=== PATIENT | male | born 1955 | race Caucasian/White ===

== ENCOUNTER 2021-10-14 11:26 | Outpatient (CLI) | payer MEDICARE, BC ==
[2021-10-14 13:38] LABS: Hemoglobin 12.2 g/dL (13.5-17.5); Mean Corpuscular HGB CONC 31.9 g/dL (32.0-36.0); Mean Corpuscular Hemoglobin 24.3 pg (27.0-33.0); Mean Corpuscular Volume 76.3 fl (81.2-95.1); Mean Platelet Volume 8.8 fl (7.4-10.4); Platelet Count 189 10x3/uL (150-450); RBC Distribution Width 21.5 % (11.5-14.5); Red Blood Cell (RBC) Count 5.02 10x6/uL (4.32-5.72); White Blood Cell (WBC) Count 9.6 10x3/uL (3.5-10.5)
[2021-10-14 13:47] LABS: Anion Gap 11 mmol/L (10-20); BUN (Urea Nitrogen) 13 mg/dL (8.4-25.7); Calc. Creatinine Clearance 0 mL/min (70-130); Calcium 8.6 mg/dL (7.8-10.44); Carbon Dioxide 27 mmol/L (23-31); Chloride 104 mmol/L (98-107); Glucose 80 mg/dL (80-115); Potassium 3.9 mmol/L (3.5-5.1); Sodium 138 mmol/L (136-145)
[2021-10-14 13:49] LABS: INR-International Normal Ratio 1.1; Prothrombin Time 12.3 sec (9.5-12.1)
[2021-10-15 11:57] LABS: SARS-CoV-2 PCR by NAA Not Detected (NotDetected)
== END 2021-10-14 11:27 | disposition home or self-care (01) ==
LOC: LABBT 11:26
PROVIDERS: ATTEND Internal Medicine Cardiovascular Disease
DX: Z01.812 Encounter for preprocedural laboratory examination (principal); I48.19 Other persistent atrial fibrillation; Z20.822 Contact with and (suspected) exposure to COVID-19
CPT/HCPCS: 80048; 85027; 85610; U0003; U0005

== ENCOUNTER 2021-10-19 07:07 | Day surgery (SDC) | payer MEDICARE, BC ==
[2021-10-15 12:52] VITALS: BMI 37.2
[2021-10-19] MEDS ORDERED: Heparin 25,000 units/D5W 500 ML ONE (09:31)
[2021-10-19] MEDS ORDERED: Heparin 10,000 UNITS/ 10 ML VIAL ONE (09:31)
[2021-10-19] MEDS ORDERED: Fentanyl 100 MCG/2 ML VIAL ONE (11:03)
[2021-10-19] MEDS ORDERED: Ondansetron PF 4 MG/2 ML Vial ONE (11:36)
[2021-10-19] MEDS ORDERED: Dexamethasone 20 MG/5 ML VIAL ONE (11:36)
[2021-10-19] MEDS ORDERED: ePHEDrine 50 MG/ML VIAL ONE (11:36)
[2021-10-19] MEDS ORDERED: PROPOFOL 200 MG/20 ML VIAL ONE (11:36)
[2021-10-19] MEDS ORDERED: Rocuronium Bromide 10 MG/ML (10ML VIAL) ONE (11:36)
[2021-10-19] MEDS ORDERED: Lidocaine 1% PF 5 ML VIAL ONE (11:36)
[2021-10-19] MEDS ORDERED: Phenylephrine 10 MG/ML VIAL ONE (11:36)
[2021-10-19] MEDS ORDERED: HYDROmorphone 2 MG/ML VIAL ONE (13:32)
[2021-10-19] MEDS ORDERED: Protamine Sulfate 50 MG/5 ML VIAL ONE (14:19)
== END 2021-10-19 19:10 | disposition home or self-care (01) ==
LOC: CCL 07:07
PROVIDERS: ATTEND Internal Medicine Cardiovascular Disease
PROC: B246ZZ4 Ultrasonography of Right and Left Heart, Transesophageal (ICD-10-PCS; principal; 2021-10-19)
PROC: B24CZZ4 Ultrasonography of Pericardium, Transesophageal (ICD-10-PCS; 2021-10-19)
PROC: B244ZZ3 Ultrasonography of Right Heart, Intravascular (ICD-10-PCS; 2021-10-19)
PROC: 02583ZZ Destruction of Conduction Mechanism, Percutaneous Approach (ICD-10-PCS; 2021-10-19)
PROC: 02K83ZZ Map Conduction Mechanism, Percutaneous Approach (ICD-10-PCS; 2021-10-19)
DX: I48.11 Longstanding persistent atrial fibrillation (principal); I70.0 Atherosclerosis of aorta; I49.5 Sick sinus syndrome; I11.0 Hypertensive heart disease with heart failure; I50.22 Chronic systolic (congestive) heart failure; E78.5 Hyperlipidemia, unspecified; I25.10 Atherosclerotic heart disease of native coronary artery without angina pectoris; I25.2 Old myocardial infarction; M17.11 Unilateral primary osteoarthritis, right knee; E66.9 Obesity, unspecified; Z68.37 Body mass index [BMI] 37.0-37.9, adult; Z87.891 Personal history of nicotine dependence; Z79.01 Long term (current) use of anticoagulants; Z79.899 Other long term (current) drug therapy; Z88.3 Allergy status to other anti-infective agents; Z95.0 Presence of cardiac pacemaker
CPT/HCPCS: 85347; 93005; 93312; 93613; 93656; 93657; 93662; C1732; C1759; C1776; C2630; J1170; J1644; J2720; J3010

== ENCOUNTER 2022-03-28 09:29 | Outpatient (CLI) | payer MEDICARE, BC ==
[2022-03-28 10:52] LABS: Hemoglobin 11.1 g/dL (13.5-17.5); Mean Corpuscular Volume 84.6 fl (81.2-95.1); Mean Platelet Volume 8.4 fl (7.4-10.4); Platelet Count 204 10x3/uL (150-450); RBC Distribution Width 23.2 % (11.5-14.5); Red Blood Cell (RBC) Count 3.97 10x6/uL (4.32-5.72); White Blood Cell (WBC) Count 5.8 10x3/uL (3.5-10.5)
[2022-03-28 10:56] LABS: Anion Gap 12 mmol/L (10-20); BUN (Urea Nitrogen) 14 mg/dL (8.4-25.7); Calc. Creatinine Clearance 0 mL/min (70-130); Calcium 8.7 mg/dL (7.8-10.44); Carbon Dioxide 25 mmol/L (23-31); Chloride 105 mmol/L (98-107); Glucose 96 mg/dL (80-115); Sodium 138 mmol/L (136-145)
[2022-03-28 11:02] LABS: INR-International Normal Ratio 1.3
[2022-03-28 11:24] LABS: ALT (SGPT) 78 U/L (8-55); AST (SGOT) 135 U/L (5-34); Albumin 2.9 g/dL (3.4-4.8); Alkaline Phosphatase 204 U/L (40-110); Bilirubin, Direct 1.5 mg/dL (0.1-0.3); Bilirubin, Total 2.4 mg/dL (0.2-1.2); Protein, Total 7.1 g/dL (5.8-8.1)
[2022-03-28 20:29] LABS: SARS-CoV-2 PCR by NAA Not Detected (NotDetected)
== END 2022-03-28 09:30 | disposition home or self-care (01) ==
LOC: LABBT 09:29
PROVIDERS: ATTEND Internal Medicine Cardiovascular Disease
DX: Z01.812 Encounter for preprocedural laboratory examination (principal); I48.11 Longstanding persistent atrial fibrillation; Z20.822 Contact with and (suspected) exposure to COVID-19
CPT/HCPCS: 80048; 80076; 85027; 85610; U0003; U0005

== ENCOUNTER 2023-10-02 11:29 | Outpatient (CLI) | payer MEDICARE, BC | END 2023-10-02 11:30 | disposition home or self-care (01) | LOC: SCSRAD 11:29 | PROVIDERS: ATTEND Family Medicine | DX: M25.551 Pain in right hip (principal); M89.9 Disorder of bone, unspecified ==

== ENCOUNTER 2024-01-18 11:04 | Outpatient (CLI) | payer MEDICARE, BC ==
[2024-01-18 12:40] LABS: #Basophils 0.1 10x3/uL (0.0-0.2); #Eosinphils 0.8 10x3/uL (0.0-0.5); #Monocytes 0.9 10x3/uL (0.0-1.1); #Neutrophils 4.7 10x3/uL (1.5-8.4); %Basophils 1.3 % (0.0-2.0); %Eosinophils 10.4 % (0.0-6.0); %Lymphocytes 15.4 % (18.0-47.0); %Monocytes 11.3 % (0.0-10.0); %Neutrophils 61.2 % (40.0-75.0); Mean Corpuscular HGB CONC 35.9 g/dL (32.0-36.0); Mean Corpuscular Hemoglobin 32.7 pg (27.0-33.0); Mean Corpuscular Volume 91.1 fl (81.2-95.1); Mean Platelet Volume 8.4 fl (7.4-10.4); Platelet Count 173 10x3/uL (150-450); RBC Distribution Width 13.3 % (11.5-14.5); Red Blood Cell (RBC) Count 4.28 10x6/uL (4.32-5.72); White Blood Cell (WBC) Count 7.6 10x3/uL (3.5-10.5)
[2024-01-18 12:46] LABS: Anion Gap 13 mmol/L (10-20); BUN (Urea Nitrogen) 20 mg/dL (8.4-25.7); Calc. Creatinine Clearance 0 mL/min (70-130); Calcium 9.4 mg/dL (7.8-10.44); Carbon Dioxide 25 mmol/L (23-31); Chloride 101 mmol/L (98-107); Estimated GFR 76; Glucose 96 mg/dL (80-115); Potassium 4.6 mmol/L (3.5-5.1); Sodium 134 mmol/L (136-145)
[2024-01-18 12:53] LABS: INR-International Normal Ratio 1.1; Prothrombin Time 11.4 sec (9.5-12.1)
== END 2024-01-18 11:05 | disposition home or self-care (01) ==
LOC: LABBT 11:04
PROVIDERS: ATTEND Orthopaedic Surgery
DX: Z01.818 Encounter for other preprocedural examination (principal); M16.11 Unilateral primary osteoarthritis, right hip
CPT/HCPCS: 80048; 85025; 85610; 87081; 93005; 93010

== ENCOUNTER 2024-01-30 08:30 | Observation (INO) | payer MEDICARE, BC ==
[2024-01-29 12:07] VITALS: BMI 37.1
[2024-01-30] MEDS ORDERED: Tranexamic Acid 1,000 MG/10 ML VIAL ONE (11:18)
[2024-01-30] MEDS ORDERED: Vancomycin (BATCH) 1.5 GM/300 ML BAG ONE (11:18)
[2024-01-30] MEDS ORDERED: Sodium Chloride 0.9% 100 ML ONE ×2 (11:18→11:19)
[2024-01-30] MEDS ORDERED: CEFAZOLIN 2 GM VIAL ONE (11:19)
[2024-01-30] MEDS ORDERED: PROPOFOL 20 ML ONE (11:30)
[2024-01-30] MEDS ORDERED: Ondansetron PF 4 MG/2 ML Vial ONE (11:31)
[2024-01-30] MEDS ORDERED: Lidocaine 1% PF 5 ML VIAL ONE (11:31)
[2024-01-30] MEDS ORDERED: Fentanyl 250 MCG/5 ML VIAL ONE (11:31)
[2024-01-30] MEDS ORDERED: SUGAMMADEX SODIUM 200 MG/2 ML VIAL ONE (11:31)
[2024-01-30] MEDS ORDERED: Dexamethasone 4 mg/ml Vial ONE (11:31)
[2024-01-30] MEDS ORDERED: Rocuronium Bromide 10 MG/ML (10ML VIAL) ONE (11:31)
[2024-01-30] MEDS ORDERED: fentaNYL 50 mcg/mL 1 mL Vial SLOW IVP PRN (11:37)
[2024-01-30] MEDS ORDERED: HYDROcodone/Acetaminophen 10/325 mg Tablet PO PRN (11:37)
[2024-01-30] MEDS ORDERED: Promethazine HCl 25 MG/ML VIAL IM PRN ×2 (11:37→13:42)
[2024-01-30] MEDS ORDERED: Acetaminophen 325 MG TAB PO PRN (11:37)
[2024-01-30] MEDS ORDERED: Zolpidem Tartrate 5 MG TAB PO PRN (11:37)
[2024-01-30] MEDS ORDERED: diphenhydrAMINE 25 MG CAP PO PRN (11:37)
[2024-01-30] MEDS ORDERED: Sotalol HCl 80 MG TAB PO PRN (11:39)
[2024-01-30] MEDS ORDERED: PHENYLEPHRINE-NS 100 MCG/ML 10 ML SYRINGE ONE (12:32)
[2024-01-30] MEDS ORDERED: Bupivacaine PF 0.5% 30 ML VIAL ONE (12:44)
[2024-01-30] MEDS ORDERED: Ondansetron HCl/PF 4 MG/2 ML Vial IVP PRN (13:42)
[2024-01-30] MEDS ORDERED: HYDROmorphone 2 MG/ML VIAL SLOW IVP PRN (13:42)
[2024-01-30] MEDS ORDERED: fentaNYL 50 mcg/mL 1 mL Vial ONE ×4 (13:46→15:52)
[2024-01-30] MEDS ORDERED: HYDROmorphone 0.5 MG/0.5 ML SYRINGE ONE ×2 (14:35→16:42)
[2024-01-30] MEDS: CEFAZOLIN 2 GM in Sodium Chloride 0.9% 100 ML IVPB SCH ×2 (18:26→21:03)
[2024-01-30] MEDS: Ondansetron PF 4 MG/2 ML Vial IVP PRN (19:06)
[2024-01-30] MEDS: Torsemide 20 MG TAB PO SCH (21:02)
[2024-01-30] MEDS: Aspirin 81 mg Enteric Coated Tablet PO SCH (21:03)
[2024-01-30] MEDS: Docusate 100 MG CAP PO SCH (21:03)
[2024-01-30] MEDS: Rifaximin 550 MG TAB PO SCH (21:07)
[2024-01-30] MEDS: Ferrous Gluconate 324 MG TAB PO SCH (21:12)
[2024-01-30] MEDS: Senokot S 8.6-50 MG TAB PO SCH (21:13)
[2024-01-31 05:55] LABS: Hematocrit 33.8 % (42.0-52.0); Mean Corpuscular HGB CONC 35.5 g/dL (32.0-36.0); Mean Corpuscular Hemoglobin 33.2 pg (27.0-31.0); Mean Corpuscular Volume 93.6 fl (78.0-98.0); Mean Platelet Volume 8.5 fL (7.4-10.4); Platelet Count 129 10x3/uL (130-400); RBC Distribution Width 13.4 % (11.5-14.5); Red Blood Cell (RBC) Count 3.61 mill/uL (4.70-6.10); White Blood Cell (WBC) Count 13.2 10x3/uL (4.8-10.8)
[2024-01-31] MEDS: HYDROcodone/Acetaminophen 10/325 mg Tablet PO PRN (06:09)
[2024-01-31] MEDS: CO Q-10 CAPSULE 100 MG PO SCH (09:03)
[2024-01-31] MEDS: Potassium Chloride 20 MEQ TAB PO SCH (09:04)
[2024-01-31] MEDS: Multivitamin W/ Minerals 1 TAB PO SCH (09:04)
[2024-01-31] MEDS: Loratadine 10 MG TAB PO SCH (09:04)
[2024-01-31] MEDS: Ferrous Sulfate 325 MG TAB PO SCH (09:04)
[2024-01-31] MEDS: Spironolactone 100 MG TAB PO SCH (09:04)
[2024-01-31] MEDS: Zinc Sulfate 220 MG CAP PO SCH (11:57)
[2024-01-31 15:33] VITALS: BP 117/61; TEMP 97.4
[2024-02-01] MEDS ORDERED: Cephalexin 250 MG CAP PO SCH (21:00)
== END 2024-01-31 18:04 | disposition home or self-care (01) ==
LOC: SDC 08:30 → SURG A 18:08
PROVIDERS: ADMIT Orthopaedic Surgery; ATTEND Orthopaedic Surgery
PROC: 0SR90JZ Replacement of Right Hip Joint with Synthetic Substitute, Open Approach (ICD-10-PCS; principal; 2024-01-30)
DX: M16.11 Unilateral primary osteoarthritis, right hip (principal); Z88.8 Allergy status to other drugs, medicaments and biological substances
CPT/HCPCS: 27130; 73502; 85027; 97110 ×2; 97116; 97530 ×3; 97535; C1776; J3010; J3370; 36415; J0665; J1100; J1170; J2405; J2704; J3490

== ENCOUNTER 2025-06-13 20:52 | Emergency (ER) | payer MEDICARE, BC | END 2025-06-13 23:13 | disposition home or self-care (01) | LOC: ERS 20:52 | DX: S80.01XA Contusion of right knee, initial encounter (principal); W01.10XA Fall on same level from slipping, tripping and stumbling with subsequent striking against unspecified object, initial encounter; Y93.89 Activity, other specified; Z95.1 Presence of aortocoronary bypass graft; Z79.01 Long term (current) use of anticoagulants | CPT/HCPCS: 99283 ==